=== PATIENT | female | born 1940 | race Caucasian/White ===

== ENCOUNTER → 2022-07-19 | Outpatient (CLI) | payer MEDICARE, SELFPAY ==
--- NOTE | 2022-07-19 16:40 | RAD_ITS ---
STUDY: X-RAY - LUMBAR SPINE REASON FOR EXAM: Female, 81 years old. Low back pain. TECHNIQUE: 3 view(s) of the lumbar spine were obtained. COMPARISON: None FINDINGS: Marked osteopenia. Normal lumbar lordosis. Rotatory levoscoliosis. 15 mm anterolisthesis of L4 on L5. Diffuse lower thoracic and lumbosacral facet sclerosis. Endplate concavities of multiple vertebral bodies compatible with osteoporosis. Diffuse intervertebral disc space narrowing and osteophyte formation. Phleboliths with clips projected over the upper right sacrum and vascular calcification. RAD/Lumbar Spine 2 or 3 Views IMPRESSION: Osteopenia with diffuse moderate lower thoracic and lumbosacral spondylosis. No acute abnormality or erosive changes. Electronically Signed: Joshua Stephenson, at 10:56 EDT ,
--- NOTE | 2022-07-19 16:50 | RAD_ITS ---
STUDY: X-RAY - CERVICAL SPINE REASON FOR EXAM: Female, 81 years old. Neck pain. TECHNIQUE: 3 view(s) of the cervical spine were obtained. COMPARISON: None FINDINGS: Osteopenia. Normal anterior atlantoaxial articulation. Normal odontoid process. Normal cervical lordosis. Diffuse uncovertebral and facet sclerosis. Intervertebral disc space narrowing diffusely most marked at C3-4, C4-5, C5-6 and C6-7 and C7-T1. Osteophyte formation most marked at C4-5, C5-6, C6-7 and C7-T1. Clips projected over the lower neck and marked left carotid calcification. RAD/Cerv Spine 2 or 3 Views IMPRESSION: Osteopenia with diffuse moderate to marked cervical spondylosis. No acute abnormality or erosive changes. Electronically Signed: Joshua Stephenson, at 10:53 EDT ,
== END | disposition home or self-care (01) ==
PROVIDERS: Visit Provider Anesthesiology Pain Medicine
DX: M50.30 Other cervical disc degeneration, unspecified cervical region (principal); M47.812 Spondylosis without myelopathy or radiculopathy, cervical region; M51.36 Other intervertebral disc degeneration, lumbar region
CPT/HCPCS: 72040; 72100